=== PATIENT | female | born 1975 | race Hispanic/Latino ===

== ENCOUNTER 2019-08-05 23:05 | Emergency (ER) | payer BC, SELFPAY ==
[2019-08-05] MEDS ORDERED: MORPHINE 4 MG/ML SYR ONE (23:57)
[2019-08-05] MEDS ORDERED: ONDANSETRON 4 MG/2 ML VIAL ONE (23:57)
[2019-08-06 00:01] LABS: Absolute Lymphocytes (CBC) 3.9 K/uL (0.7-4.9); Hematocrit 37.6 % (36.0-45.0); Lymphocytes % 44.7 % (15.3-44.8); MPV 8.3 fL (7.6-11.3); RBC Red Blood Cell Count 4.34 M/uL (3.86-4.86)
[2019-08-06 00:23] LABS: ALT/SGPT 13 U/L (12-78); AST/SGOT 13 U/L (15-37); Albumin 4.2 g/dL (3.4-5.0); Alkaline Phosphatase 57 U/L (45-117); BUN Blood Urea Nitrogen 23 mg/dL (7-18); Bicarbonate 25 mmol/L (21-32); Bilirubin Direct 0.1 mg/dL (0-0.2); Bilirubin Total 0.3 mg/dL (0.2-1.0); Glucose Level 108 mg/dL (74-106); Magnesium 1.7 mg/dL (1.8-2.4); NT PRO-BNP 82 pg/mL (<125); Potassium 3.9 mmol/L (3.5-5.1); Protein, Total 7.3 g/dL (6.4-8.2); Sodium Level 142 mmol/L (136-145); Troponin (Emerg Dept Use Only) < 0.02 ng/mL (0.0-0.045)
[2019-08-06] MEDS ORDERED: MAGNESIUM SULFATE 1 gm IVPB 1 GM/100 ML BAG IV ONE (01:07)
--- NOTE | 2019-08-06 03:21 | ER ---
Nurse's Notes [facility] Name: Savanah Cunha Age: 44 yrs Sex: Female : 1975 Arrival Date: 08/05/2019 Time: 23:06 Bed 30 Private MD: Diagnosis: Radiculopathy, lumbosacral region;Low back pain;Other chest pain Presentation: 08/06 00:05 Presenting complaint: Patient states: patient came in for pain on her right breast, mg2 back and leg. Transition of care: patient was not received from another setting of care. Onset of symptoms was August 05, 2019. Risk Assessment: Do you want to hurt yourself or someone else? Patient reports no desire to harm self or others. Initial Sepsis Screen: Does the patient meet any 2 criteria? No. Patient's initial sepsis screen is negative. Does the patient have a suspected source of infection? No. Patient's initial sepsis screen is negative. 00:05 Method Of Arrival: Wheelchair mg2 00:05 Acuity: EDY 3 mg2 00:05 Care prior to arrival: None. 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 - Social history:: Smoking status: unknown. - Ebola Screening: : No symptoms or risks identified at this time. Screenin:36 Abuse screen: Denies threats or abuse. Denies injuries from another. Nutritional mg2 screening: No deficits noted. Tuberculosis screening: No symptoms or risk factors identified. Fall Risk IV access (20 points). Assessment: 00:34 General: Appears uncomfortable, Behavior is anxious. Pain: Complains of pain in right mg2 breast, leg and back Pain currently is 4 out of 10 on a pain scale. Quality of pain is described as aching, Pain began gradually, Is intermittent. Neuro: Level of Consciousness is awake, alert, obeys commands, Oriented to person, place, time, situation. Cardiovascular: Capillary refill < 3 seconds Patient's skin is warm and dry. Respiratory: Airway is patent Respiratory effort is even, unlabored, Respiratory pattern is regular, symmetrical. GI: No signs and/or symptoms were reported involving the gastrointestinal system. : No signs and/or symptoms were reported regarding the genitourinary system. EENT: No signs and/or symptoms were reported regarding the EENT system. Derm: Skin is intact, is healthy with good turgor, Skin is pink, warm \T\ dry. normal. Musculoskeletal: Circulation, motion, and sensation intact. Capillary refill < 3 seconds, Reports pain in back and leg. 01:30 Reassessment: No changes from previously documented assessment. Patient and/or family fc updated on plan of care and expected duration. Pain level reassessed. Patient is alert, oriented x 3, equal unlabored respirations, skin warm/dry/pink. Pt states that she is starting to feel better. 02:15 Reassessment: Pt gone to Ct Scan. fc 03:01 Reassessment: Pt awake and alert, talking with family at the bedside. States that she fc feels much better. 03:13 Reassessment: Margie ROSA in to talk with pt re: test results and d/c instructions. fc Vital Signs: 08/05 23:28 BP 130 / 103; Pulse 91; Resp 24; Pulse Ox 100% on R/A; Pain 10/10; em1 08/06 00:42 BP 136 / 80; Pulse 72; Resp 18; Pulse Ox 100% on R/A; mg2 01:26 BP 122 / 94; Pulse 77; Resp 18; Pulse Ox 100% on R/A; fc 03:02 BP 109 / 77; Pulse 74; Resp 20; Pulse Ox 100% on R/A; Pain 0/10; fc ED Course: 08/05 23:06 Patient arrived in ED. ds1 23:28 Kamari Hanson PA is PHCP. cp 23:28 Adriano Cabello MD is Attending Physician. cp 08/06 00:32 Triage completed. mg2 00:34 Arm band placed on. mg2 00:36 Patient has correct armband on for positive identification. direct of real estate on. Pulse mg2 ox on. NIBP on. Door closed. Warm blanket given. 00:36 No provider procedures requiring assistance completed. Inserted saline lock: 20 gauge mg2 in right antecubital area, using aseptic technique. Blood collected. 01:02 US Extremity Venous W Compression Blayne In Process Unspecified. EDMS 01:10 XRAY Chest (1 view) In Process Unspecified. EDMS 01:36 Ultrasound completed. Patient tolerated well. Notified ED Physician . sg3 02:32 CT Lumbar Spine Wo Con In Process Unspecified. EDMS 03:33 IV discontinued, intact, bleeding controlled, No redness/swelling at site. Pressure fc dressing applied. Administered Medications: 00:14 Drug: Zofran 4 mg Route: IVP; Site: right antecubital; mg2 01:20 Follow up: Response: No adverse reaction; Nausea is decreased fc 00:15 Drug: morphine 4 mg Route: IVP; Site: right antecubital; mg2 01:20 Follow up: Response: No adverse reaction; Pain is decreased fc 01:10 Drug: Magnesium Sulfate 1 grams Route: IVPB; Infused Over: 1 hrs; Site: right fc antecubital; 02:10 Follow up: Response: No adverse reaction; Marked relief of symptoms; IV Status: fc Completed infusion; IV Intake: 100ml Intake: 02:10 IV: 100ml; Total: 100ml. fc Outcome: 03:21 Discharge ordered by MD. cp 03:33 Discharged to home ambulatory, with family. fc 03:33 Condition: good 03:33 Discharge instructions given to patient, family, Instructed on discharge instructions, follow up and referral plans. no drinking with medication, no driving heavy equipment, medication usage, Demonstrated understanding of instructions, follow-up care, medications, Prescriptions given X 3. 03:36 Patient left the ED. fc Signatures: Dispatcher [employer] EDMS Shaista May RN RN Mare Freedman ds1 Lane Crowe em1 Kamari Hanson PA PA cp Godinez, Sarah 3 Adam Aguilar RN RN mg2 Corrections: (The following items were deleted from the chart) 01:27 00:43 Allergies: simvalta; mg2 fc
--- NOTE | 2019-08-06 03:21 | EDPHYS ---
Physician Documentation [facility] Name: Savanah Cunha Age: 44 yrs Sex: Female : 1975 Arrival Date: 08/05/2019 Time: 23:06 Bed 30 Private MD: ED Physician Adriano Cabello HPI: 08/05 23:45 This 44 yrs old Female presents to ER via Wheelchair with complaints of Leg cp Pain. 23:45 The patient presents with pain, that is acute. The complaints affect the right leg and cp left leg. Onset: The symptoms/episode began/occurred today. Associated signs and symptoms: Pertinent positives: low back pain and right side chest pain, Pertinent negatives fever, weakness, incontinence of bowel or bladder. Treatment prior to arrival includes: no previous treatment. 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 - Social history:: Smoking status: unknown. - Ebola Screening: : No symptoms or risks identified at this time. ROS: 08/05 23:50 Constitutional: Negative for body aches, chills, fever, poor PO intake. cp 23:50 Eyes: Negative for injury, pain, redness, and discharge. cp 23:50 Cardiovascular: Positive for chest pain, Negative for palpitations. cp 23:50 ENT: Negative for drainage from ear(s), ear pain, sore throat, difficulty swallowing, cp difficulty handling secretions. 23:50 Neck: Negative for stiffness. 23:50 Respiratory: Negative for cough, shortness of breath, wheezing. 23:50 Abdomen/GI: Negative for abdominal pain, nausea, vomiting, and diarrhea, black/tarry stool, rectal bleeding, bowel incontinence. 23:50 Back: Positive for pain at rest, pain with movement. 23:50 : Negative for urinary symptoms, bladder incontinence. 23:50 MS/extremity: Positive for pain, of the right leg and left leg, Negative for injury or acute deformity, decreased range of motion. 23:50 Neuro: Negative for altered mental status, headache, numbness, weakness. 23:50 All other systems are negative. Exam: 23:55 Constitutional: The patient appears in no acute distress, alert, awake, non-toxic, well cp developed, well nourished, uncomfortable. 23:55 Head/Face: Normocephalic, atraumatic. cp 23:55 Eyes: Pupils equal round and reactive to light, extra-ocular motions intact. Lids and lashes normal. Conjunctiva and sclera are non-icteric and not injected. Cornea within normal limits. Periorbital areas with no swelling, redness, or edema. ENT: Nares patent. No nasal discharge, no septal abnormalities noted. Tympanic membranes are normal and external auditory canals are clear. Oropharynx with no redness, swelling, or masses, exudates, or evidence of obstruction, uvula midline. Mucous membranes moist. Chest/axilla: Normal chest wall appearance and motion. Nontender with no deformity. No lesions are appreciated. 23:55 Cardiovascular: Rate: normal, Rhythm: regular, Edema: is not appreciated, JVD: is not appreciated. 23:55 Respiratory: the patient does not display signs of respiratory distress, Respirations: normal, no use of accessory muscles, no retractions, no splinting, no tachypnea, labored breathing, is not present, Breath sounds: are clear throughout, no decreased breath sounds, no stridor, no wheezing. 23:55 Abdomen/GI: Inspection: abdomen appears normal, Bowel sounds: active, all quadrants, Palpation: abdomen is soft and non-tender, in all quadrants. 23:55 Back: pain, that is moderate, of the lumbar area, ROM is painful, with all movement. 08/06 00:10 ECG was reviewed by the Attending Physician. cp Vital Signs: 08/05 23:28 BP 130 / 103; Pulse 91; Resp 24; Pulse Ox 100% on R/A; Pain 10/10; em1 08/06 00:42 BP 136 / 80; Pulse 72; Resp 18; Pulse Ox 100% on R/A; mg2 01:26 BP 122 / 94; Pulse 77; Resp 18; Pulse Ox 100% on R/A; fc 03:02 BP 109 / 77; Pulse 74; Resp 20; Pulse Ox 100% on R/A; Pain 0/10; fc MDM: 08/05 23:31 Patient medically screened. cp 08/06 03:20 Data reviewed: vital signs, nurses notes, lab test result(s), radiologic studies, CT cp scan, ultrasound. 03:20 Differential diagnosis: DVT, sciatica, cauda equina, spinal stenosis. Counseling: I had cp a detailed discussion with the patient and/or guardian regarding: the historical points, exam findings, and any diagnostic results supporting the discharge/admit diagnosis, lab results, radiology results, the need for outpatient follow up, a family practitioner, to return to the emergency department if symptoms worsen or persist or if there are any questions or concerns that arise at home. Response to treatment: the patient's symptoms have markedly improved after treatment, VSS. Pain improved, and as a result, I will discharge patient. 08/05 23:42 Order name: Basic Metabolic Panel; Complete Time: 00:56 cp 08/06 02:57 Interpretation: Normal except: CL 109; GLUC 108; BUN 23; GFR 78. 08/05 23:42 Order name: CBC with Diff; Complete Time: 00:08 cp 08/06 00:08 Interpretation: Reviewed. 08/05 23:42 Order name: LFT's; Complete Time: 00:56 cp 08/06 02:57 Interpretation: Reviewed. 08/05 23:42 Order name: Magnesium; Complete Time: 00:56 cp 08/06 02:57 Interpretation: Abnormal: MG 1.7. cp 08/05 23:42 Order name: NT PRO-BNP; Complete Time: 00:56 cp 08/05 23:42 Order name: PT-INR; Complete Time: 00:56 cp 08/05 23:42 Order name: US Extremity Venous W Compression Blayne cp 08/05 23:42 Order name: Troponin (emerg Dept Use Only); Complete Time: 00:56 cp 08/05 23:42 Order name: XRAY Chest (1 view) 08/05 23:42 Order name: EKG; Complete Time: 23:43 cp 08/06 00:17 Order name: CT Lumbar Spine Wo Con cp 08/05 23:42 Order name: Cardiac monitoring; Complete Time: 00:15 cp 08/05 23:42 Order name: EKG - Nurse/Tech; Complete Time: 00:15 cp 08/05 23:42 Order name: IV Saline Lock; Complete Time: 00:15 cp 08/05 23:42 Order name: Labs collected and sent; Complete Time: 00:15 cp 08/05 23:42 Order name: O2 Per Protocol; Complete Time: 00:15 cp 08/05 23:42 Order name: O2 Sat Monitoring; Complete Time: 00:15 cp EC:10 Rate is 76 beats/min. Rhythm is regular. RI interval is normal. QRS interval is normal. cp QT interval is normal. T waves are Inverted in lead III. Interpreted by me. Reviewed by me. Administered Medications: 00:14 Drug: Zofran 4 mg Route: IVP; Site: right antecubital; mg2 01:20 Follow up: Response: No adverse reaction; Nausea is decreased fc 00:15 Drug: morphine 4 mg Route: IVP; Site: right antecubital; mg2 01:20 Follow up: Response: No adverse reaction; Pain is decreased fc 01:10 Drug: Magnesium Sulfate 1 grams Route: IVPB; Infused Over: 1 hrs; Site: right fc antecubital; 02:10 Follow up: Response: No adverse reaction; Marked relief of symptoms; IV Status: fc Completed infusion; IV Intake: 100ml Disposition: 06:55 Co-signature as Attending Physician, Adriano Cabello MD I agree with the assessment and tw4 plan of care. Disposition: 08/06/19 03:21 Discharged to Home. Impression: Radiculopathy, lumbosacral region, Low back pain, Other chest pain. - Condition is Stable. - Discharge Instructions: Back Pain, Adult, Nonspecific Chest Pain, Lumbosacral Radiculopathy, Aspirin and Your Heart. - Prescriptions for Cyclobenzaprine 10 mg Oral Tablet - take 1 tablet by ORAL route every 8 hours As needed; 20 tablet. Medrol (Андрей) 4 mg Oral Tablets, Dose Pack - take 1 tablet by ORAL route as directed - follow package instructions; 1 packet. Tramadol 50 mg Oral Tablet - take 1 tablet by ORAL route every 8 hours as needed; 20 tablet. - Medication Reconciliation Form, Thank You Letter, Antibiotic Education, Prescription Opioid Use form. - Follow up: Private Physician; When: 2 - 3 days; Reason: Recheck today's complaints. - Problem is new. - Symptoms have improved. Signatures: Dispatcher [employer] EDShaista Chambers RN RN Kamari Webster PA PA cp Wadley, Terrence, MD MD tw4 Adam Aguilar, RN RN mg2 Corrections: (The following items were deleted from the chart) 01:27 00:43 Allergies: simvalta; mg2 fc 03:36 03:21 08/06/2019 03:21 Discharged to Home. Impression: Radiculopathy, lumbosacral fc region; Low back pain; Other chest pain. Condition is Stable. Forms are Medication Reconciliation Form, Thank You Letter, Antibiotic Education, Prescription Opioid Use. Follow up: Private Physician; When: 2 - 3 days; Reason: Recheck today's complaints. Problem is new. Symptoms have improved. cp
--- NOTE | 2019-08-06 06:13 | EKG ---
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
[2019-08-06 06:30] VITALS: O2SAT 100
[2019-08-06 06:33] VITALS: BP 109/77
[2019-08-06 07:16] VITALS: TEMP 98.2
--- NOTE | 2019-08-06 09:55 | RAD REPORT ---
EXAM DESCRIPTION: RAD - Chest Single View - 08/06/2019 1:09 am CLINICAL HISTORY: Right-sided breast and chest pain COMPARISON: December 2009 TECHNIQUE: AP portable chest image was obtained 2358 hours . FINDINGS: Lungs are clear. Heart and vasculature are normal. No measurable pleural effusion and no p neumothorax. No acute bony abnormality seen. No acute aortic findings suspected. IMPRESSION: No acute cardiopulmonary process.
--- NOTE | 2019-08-06 10:47 | RAD REPORT ---
EXAM DESCRIPTION: US - Extrem Venous W Compress Blayne - 08/06/2019 1:02 am CLINICAL HISTORY: Leg pain and swelling COMPARISON: None. TECHNIQUE: Real-time sonographic evaluation of the bilateral lower extremity common femoral, superfi cial femoral, popliteal and posterior tibial veins was performed. FINDINGS: Normal compressibility, flow augmentation, phasic flow and spontaneous flow are identified in the left and right lower extremity common femoral, superficial femoral, popliteal and posterior t ibial veins. No intraluminal filling defects seen. IMPRESSION: No DVT in either lower extremity.
--- NOTE | 2019-08-08 15:32 | RAD REPORT ---
EXAM DESCRIPTION: CT - Spine Lumbar Wo Con - 08/06/2019 3:53 am CLINICAL HISTORY: 44 years Female leg pain; Lower back pain COMPARISON: None TECHNIQUE Multiplanar imaging through the lumbar spine without contrast. This exam was performed a ccording to our departmental dose-optimization program, which includes automated exposure control, ad justment of the mA and/or kV according to patient size and/or use of iterative reconstruction techniq ue. FINDINGS: No fracture. Trace retrolisthesis of L4 on L5. Mild facet arthropathy, right greater than left Disc spaces are preserved. Paraspinal soft tissues are unremarkable. Visualized abdomen demonstrates no acute abnormality. IMPRESSION: No acute lumbar spine fracture. Mild lower lumbar changes. Electronically signed by: Partha Michael DO 08/06/2019 3:05 AM CDT Due to temporary technical issues with the PACS/Fluency reporting system, reports are being signed by the in house radiologist as a courtesy to ensure prompt reporting. The interpreting radiologist is f ully responsible for the content of the report.
== END 2019-08-06 03:36 | disposition home or self-care (01) ==
LOC: ER 23:05
DX: M54.17 Radiculopathy, lumbosacral region (principal); R07.89 Other chest pain; F41.9 Anxiety disorder, unspecified; Z88.8 Allergy status to other drugs, medicaments and biological substances; Z98.82 Breast implant status
CPT/HCPCS: 36415; 71045; 72131; 80048; 80076; 83735; 83880; 84484; 85025; 85610; 93005; 93970; 96365; 96375; 99284; J2405; J3475

== ENCOUNTER 2021-03-16 12:49 | Emergency (ER) | payer SELFPAY ==
--- OUTSIDE RECORDS SUMMARY | 2021-03-16 12:53 | XMS REPORT | Continuity of Care Document ---
:1975 Author Organization [facility] t Address [address] [place] [address] Care Team Providers Name Role Phone Oswaldo Cha MD Primary Care Physician Sherice Copeland MD Attending Clinician Problems This patient has no known problems. Allergies, Adverse Reactions, Alerts This patient has no known allergies or adverse reactions. Social History Social Habit Start Date Stop Date Quantity Comments Source Sex Assigned At [birth year] [facility] 00:00:00 00:00:00 Medications This patient has no known medications. Procedures This patient has no known procedures. Plan of Care Planned Activity Planned Date Details Comments Source Future Scheduled 2021-06-01 INFLUENZA VACCINE [place] 00:00:00 [code = INFLUENZA VACCINE] Future Scheduled 1998 Screening for [facility] Test 00:00:00 malignant neoplasm of cervix (procedure) [code = 880533943] Future Scheduled 1995 Hepatitis C [facility] 00:00:00 screening (procedure) [code = 952636753] Future Scheduled 1993 COVID-19 VACCINE (1) [facility] 00:00:00 [code = COVID-19 VACCINE (1)] Encounters Start End Encounter Admission Attending Care Care Encounter Source Date/Time Date/Time Type Type Clinicians Facility Department ID 2019-06-05 2019-06-05 Telephone Berry Copeland [id number] 00:00:00 00:00:00 C Kali [id number] Francis [id number] Results This patient has no known results.
--- NOTE | 2021-03-16 14:33 | RAD REPORT ---
EXAM DESCRIPTION: RAD - Forearm Right - 03/16/2021 2:25 pm CLINICAL HISTORY: PAIN COMPARISON: Wrist Right 3 View dated 03/16/2021, no remote imaging FINDINGS: Distal radius and ulna are detailed in the separately reported right wrist examination. At the elbow joint no fracture or acute finding seen. To the distal shaft level of the radius and ulna no acute findings are identifiable. No foreign body or other soft tissue abnormality. IMPRESSION: Distal radius and ulna are detailed in the right wrist report. Remainder of the forearm is unremarkable.
--- NOTE | 2021-03-16 14:35 | RAD REPORT ---
EXAM DESCRIPTION: RAD - Wrist Right 3 View - 03/16/2021 2:25 pm CLINICAL HISTORY: PAIN COMPARISON: No comparisons FINDINGS: Fracture involves the distal right radius including the articular surface. There is no dis traction or angulation component seen. Configuration of the ulna styloid is believed to be chronic in jury or normal variant rather than an acute ulna styloid fracture. No dislocation periosteal changes. Carpal bones are intact. No foreign body or other soft tissue abnormality. IMPRESSION: Distal right radius fracture without distraction or angulation component. Configuration of the ulna styloid tip could be normal variant or small fracture. The presence of a fr acture would not alter medical management.
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
[2021-03-16] MEDS ORDERED: HYDROCODONE/APAP 10/325 TAB ONE (16:18)
[2021-03-16 16:43] VITALS: BP 103/52; TEMP 97.1; O2SAT 100
[2021-03-16] MEDS ORDERED: TETANUS & DIPHTHERIA TOX,ADULT 0.5 ML VIAL ONE (16:50)
== END 2021-03-16 16:37 | disposition home or self-care (01) ==
LOC: ER 12:49
PROC: 2W3CX1Z Immobilization of Right Lower Arm using Splint (ICD-10-PCS; principal; 2021-03-16)
DX: S52.501A Unspecified fracture of the lower end of right radius, initial encounter for closed fracture (principal); V28.9XXA Unspecified motorcycle rider injured in noncollision transport accident in traffic accident, initial encounter; F41.9 Anxiety disorder, unspecified; Z98.82 Breast implant status; Z88.8 Allergy status to other drugs, medicaments and biological substances; Z23 Encounter for immunization
CPT/HCPCS: 90471; 90714; 99284

== ENCOUNTER 2022-08-23 03:53 | Emergency (ER) | payer SELFPAY ==
--- OUTSIDE RECORDS SUMMARY | 2022-08-23 03:57 | XMS REPORT | Continuity of Care Document ---
:1975 Author Organization [facility] t Address [address] [place] [address] Care Team Providers Name Role Phone TATIANA COPELAND III Primary Care Physician Unavailable GC_NAVEED_Zackary_J Attending Clinician Unavailable Andreina Marks Attending Clinician Cesar Kay MD Attending Clinician CESAR KAY Attending Clinician Unavailable Doctor Unassigned, [place] Attending Clinician Unavailable JANIE BUTT Attending Clinician Unavailable George Attending Clinician Unavailable Tatiana Copeland MD Attending Clinician GC_NAVEED_Zackary_Bam Admitting Clinician Unavailable George Admitting Clinician Unavailable Payers Payer Name Policy Type Policy Number Effective Date Expiration Date S ource [employer] [id number] - [place] [id number] 2014 (PPO) 00:00:00 Problems Condition Condition Condition Status Onset Resolution Last Treating Co mments Source Name Details Category Date Date Treatment Clinician Date Reactive Reactive Disease Active Unive rs depression depression 8- it y of 00:00: [place] 00 Medical Branch Allergies, Adverse Reactions, Alerts Allergy Allergy Status Severity Reaction(s) Onset Inactive Treating Comm ents Source Name Type Date Date Clinician Duloxeti Drug Active Other - See Uni vers ne Allergy comments 05-21 ity of 00:00: [place] 00 Medical Branch DULOXETI DRUG Active High Other-Cmnt Univ ers NE INGREDI 05-21 ity of 00:00: [place] 00 Medical Branch Hydrocod Propensi Active Itching 2009-11 Unive rs one ty to 0-05 ity of adverse 00:00: [place] reaction 00 Medical s Branch HYDROCOD DRUG Active ITCHING 2009-11 Univers ONE INGREDI 0-05 ity of 00:00: [place] 00 Medical Branch NO KNOWN Drug Active Univers ALLERGIE Class ity of S [facility] Social History Social Habit Start Date Stop Date Quantity Comments Source Exposure to Not sure [facility] SARS-CoV-2 (event) Medica l Branch Tobacco use and 2021-05-21 2021-05-21 Never used [facility] of [place] exposure 00:00:00 00:00:00 [facility] Sex Assigned At [birth year] [facility] 00:00:00 00:00:00 Smoking Status Start Date Stop Date Source Tobacco smoking consumption [facility] unknown Never smoker [facility] Medications Ordered Filled Start Stop Current Ordering Indication Dosage Frequency Signature Comments Components Source Medication Medication Date Date Medication? Clinician (SIG) Name Name triamcinolo 2020- No [id number] 40mg U nivers ne 05-21 ity of acetonide 23:30: 22:24 [place] (KENALOG) 00 :00 Medical injection Branch 40 mg triamcinolo 2020- No [id number] 40mg 40 mg, [facility] ne 05-21 Intramuscu ity of acetonide 23:30: 22:24 [place]CE, [place] (KE[place]LOG[place] 00 :00 1 dose, Medical injection Wed Branch 40 mg 05/21/21 at 1830, Routine methylPREDN Yes [id number] Take by [facility] ISolone 05-21 mouth ity of (MEDROL, 00:00: SEE-INSTRU [place] as DAYDAY,) 4 mg 00 CTIONS. Medica l tablets follow Branch package directions fluticasone Yes [id number] 2{spray Use 2 Univers propionate 05-21 } Sprays in ity of (FLONASE 00:00: each [place] ALLERGY 00 nostril Medical RELIEF) 50 daily. Branch mcg/actuati on nasal spray methylPREDN Yes [id number] Take by Univers ISolone 7-21 mouth ity of (MEDROL, 00:00: SEE-INSTRU [place] DAYDAY,) 4 mg 00 CTIONS. Medica l tablets follow Branch package directions fluticasone Yes [id number] 2{spray Use 2 Univers propionate 7- } Sprays in ity of (FLONASE 00:00: each [place] ALLERGY nostril Medical RELIEF) 50 daily. Branch mcg/actuati on nasal spray amoxicillin 2020- No [id number] 1{tbl} Take 1 Univers -clavulanat 7- 07-29 tablet by it y of e 875-125 00:00: 04:59 [place] 2 [place] mg per 00 :00 (two) Medical tablet times Branch daily for 7 days. methylpheni Yes 1{tbl} Take 1 Un jak date HCl 36 8-19 tablet by ity of mg 24 hr 21:59: mouth [place] tablet 58 daily. Medical Branch methylpheni Yes 1{tbl} Take 1 Un jak date HCl 36 8-19 tablet by ity of mg 24 hr 21:59: mouth [place] tablet 58 daily. Medical Branch HYDROcodone Yes 1{tbl} Take 1 Un jak -acetaminop 8-19 tablet by ity of hen 10-325 17:48: mouth [place] mg tablet 40 every 8 Medical (eight) Branch hours. HYDROcodone Yes 1{tbl} Take 1 Un jak -acetaminop 8-19 tablet by ity of hen 10-325 17:48: mouth [place] mg tablet 40 every 8 Medical (eight) Branch hours. methylpheni Yes 1{tbl} Take 1 Un jak date HCl 36 8-19 tablet by ity of mg 24 hr 16:59: mouth [place] tablet 58 daily. Medical Branch HYDROcodone Yes 1{tbl} Take 1 Un jak -acetaminop 8-19 tablet by ity of hen 10-325 12:48: mouth [place] mg tablet 40 every 8 Medical (eight) Branch hours. albuterol Yes ProAir HFA Un jak (PROAIR 6-28 90 ity of HFA) 90 21:09: mcg/actuat [place] mcg/actuati 10 ion Medical on inhaler aerosol Branch inhaler Inhale 2 puffs every 4 hours by inhalation route as needed for 30 days. albuterol 2018-0 Yes ProAir HFA Un jak (PROAIR 6-28 90 ity of HFA) 90 21:09: mcg/actuat [place] mcg/actuati 10 ion Medical on inhaler aerosol Branch inhaler Inhale 2 puffs every 4 hours by inhalation route as needed for 30 days. albuterol 2018-0 Yes ProAir HFA Un jak (PROAIR 6-28 90 ity of HFA) 90 21:09: mcg/actuat [place] mcg/actuati 10 ion Medical on inhaler aerosol Branch inhaler Inhale 2 puffs every 4 hours by inhalation route as needed for 30 days. ALPRAZolam Yes alprazolam U nivers 2 mg tablet 6-28 2 mg ity of 21:08: tablet [place] [address] Medical Branch acetaminoph 0 Yes Take by Un jak en-codeine 6-28 mouth. ity of 300-60 mg 21:08: [place] tablet 30 Medical Branch ALPRAZolam Yes alprazolam U nivers 2 mg tablet 6-28 2 mg ity of 21:08: tablet [place] [address] Medical Branch acetaminoph 0 Yes Take by Uni vers en-codeine 6-28 mouth. ity of 300-60 mg 21:08: [place] tablet 30 [facility] Branch ALPRAZolam Yes alprazolam U nivers 2 mg tablet 6-28 2 mg ity of 21:08: tablet [place] 30 Medical Branch acetaminoph [id number] Yes Take by Uni vers en-codeine 6-28 mouth. ity of 300-60 mg 21:08: [facility] 30 Medical Branch albuterol 2019-0 Yes ProAir HFA Un jak (PROAIR 6-28 90 ity of HFA) 90 16:09: mcg/actuat [place] mcg/actuati 10 ion Medical on inhaler aerosol Branch inhaler Inhale 2 puffs every 4 hours by inhalation route as needed for 30 days. ALPRAZolam Yes alprazolam U nivers 2 mg tablet 6-28 2 mg ity of 16:08: tablet [place] 30 Medical Branch acetaminoph 2019-0 Yes Take by Uni vers en-codeine 6-28 mouth. ity of 300-60 mg 16:08: [place] [facility] 30 Medical Branch naproxen 2019-0 Yes [id number] 500mg Take 1 Uni vers 500 mg 6-28 tablet by ity of tablet 00:00: mouth 2 [place] (two) Medical times Branch daily with meals. naproxen 2018- Yes [id number] 500mg Take 1 Uni vers 500 mg 6-28 tablet by ity of tablet 00:00: mouth 2 [place] (two) Medical times Branch daily with meals. naproxen 2018- Yes [id number] 500mg Take 1 Uni vers 500 mg 6-28 tablet by ity of tablet 00:00: mouth 2 [place] (two) Medical times Branch daily with meals. naproxen Yes [id number] 500mg Take 1 Uni vers 500 mg 6-28 tablet by ity of tablet 00:00: mouth 2 [place] (two) Medical times Branch daily with meals. FLUTICASONE 2017-11 Yes [id number] 1{spray USE 1 Univers 50 1-15 } SPRAY IN ity of mcg/actuati 00:00: EACH [place] on nasal 00 NOSTRIL 2 Medica l spray (TWO) Branch TIMES DAILY. FLUTICASONE 2017- Yes [id number] 1{spray USE 1 Univers 50 1-15 } SPRAY IN ity of mcg/actuati 00:00: EACH [place] on nasal 00 NOSTRIL 2 Medica l spray (TWO) Branch TIMES DAILY. FLUTICASONE 2017- Yes [id number] 1{spray USE 1 Univers 50 1-15 } SPRAY IN ity of mcg/actuati 00:00: EACH [place] on nasal 00 NOSTRIL 2 Medica l spray (TWO) Branch TIMES DAILY. FLUTICASONE 2017- Yes [id number] 1{spray USE 1 Univers 50 1-15 } SPRAY IN ity of mcg/actuati 00:00: EACH [place] on nasal 00 NOSTRIL 2 Medica l spray (TWO) Branch TIMES DAILY. benzonatate Yes [id number] 100mg Take 1 Univers (TESSALON 8-01 capsule by ity of KIMBER) 100 00:00: mouth 3 [place] mg capsule 00 (three) Medica l times Branch daily. benzonatate Yes [id number] 100mg Take 1 Univers (TESSALON 8-01 capsule by ity of PERLCotopaxi) 100 00:00: mouth 3 [place] mg capsule 00 (three) Medica l times Branch daily. benzonatate Yes [id number] 100mg Take 1 Univers (TESSALON 8-01 capsule by ity of PERLCotopaxi) 100 00:00: mouth 3 [place] as mg capsule 00 (three) Medica l times Branch daily. benzonatate Yes [id number] 100mg Take 1 Univers (TESSALON 8-01 capsule by ity PERLCotopaxi) 100 00:00: mouth 3 [place] as mg capsule 00 (three) Medica l times Branch daily. zolpidem 10 2014-11 Yes 1{tbl} Take 1 Un jak mg tablet 1-20 tablet by ity o f 00:00: mouth [place] 00 daily. Medical Branch zolpidem 10 2014-11 Yes 1{tbl} Take 1 Un jak mg tablet 1-20 tablet by ity o f 00:00: mouth [place] 00 daily. Medical Branch zolpidem 10 2014-11 Yes 1{tbl} Take 1 Un jak mg tablet 1-20 tablet by ity o f 00:00: mouth [place] 00 daily. Medical Branch propranolol 2014-11 Yes 1{tbl} Take 1 Un jak 40 mg 0-27 tablet by ity of tablet 00:00: mouth 2 [place] 00 (two) Medical times Branch daily. propranolol 2014-11 Yes 1{tbl} Take 1 Un jak 40 mg 0-27 tablet by ity of tablet 00:00: mouth 2 [place] 00 (two) Medical times Branch daily. propranolol 2014-11 Yes 1{tbl} Take 1 Un jak 40 mg 0-27 tablet by ity of tablet 00:00: mouth 2 [place] 00 (two) Medical times Branch daily. propranolol 2014-11 Yes 1{tbl} Take 1 Un jak 40 mg 0-27 tablet by ity of tablet 00:00: mouth 2 [place] 00 (two) Medical times Branch daily. Immunizations Ordered Filled Immunization Date Status Comments [facility] e Immunization Name Name SARS-COV-2 COVID-19 2021-02-08 Completed [facility] [place] [facility] of PFIZER VACCINE 00:00:00 [facility] SARS-COV-2 COVID-19 2021-02-08 Completed Unive rsity of PFIZER VACCINE 00:00:00 [facility] SARS-COV-2 COVID-19 2021-02-08 Completed Unive rsity of PFIZER VACCINE 00:00:00 [facility] SARS-COV-2 COVID-19 2021-01-18 Completed Unive rsity of PFIZER VACCINE 00:00:00 [facility] SARS-COV-2 COVID-19 2021-01-18 Completed Unive rsity of PFIZER VACCINE 00:00:00 [facility] SARS-COV-2 COVID-19 2021-01-18 Completed Unive rsity of PFIZER VACCINE 00:00:00 [facility] Influenza Virus 2010-08-05 Completed Universit y of Vaccine Quad IM 00:00:00 [place] Med ical Multi-dose 6+ MO Branch Influenza Virus 2010-08-05 Completed Universit y of Vaccine Quad IM 00:00:00 [place] Med ical Multi-dose 6+ MO Branch Influenza Virus 2010-08-05 Completed Universit y of Vaccine [facility] IM 00:00:00 [place] Med ical Multi-dose 6+ MO Branch Influenza Virus 2010-08-05 Completed Universit y of Vaccine [facility] IM 00:00:00 [place] Med ical Multi-dose 6+ MO Branch Td 2005-08-01 Completed University of 00:00:00 [facility] Td 2005-08-01 Completed University of 00:00:00 [facility] Td 2005-08-01 Completed University of 00:00:00 [facility] Vital Signs Vital Name Observation Time Observation Value Comments Source Systolic blood 2021-05-21 21:55:00 146 mm[Hg] Univer sity of pressure [facility] Diastolic blood 2021-05-21 21:55:00 103 mm[Hg] Unive rsity of pressure [facility] Heart rate 2021-05-21 21:52:00 71 /min [facility] Body temperature 2021-05-21 21:52:00 37 Deana [facility] [place] [facility] Respiratory rate 2021-05-21 21:52:00 18 /min [facility] Body height 2021-05-21 21:52:00 160 cm [facility] Body weight 2021-05-21 21:52:00 [facility] 2021-05-21 21:52:00 34.54 kg/m2 [facility] Oxygen saturation in 2021-05-21 21:52:00 96 /min [facility] Arterial blood by [facility] Pulse oximetry Branch Procedures Procedure Date / Time Performed Performing Clinician Jannette e CONSENT/REFUSAL FOR 2021-05-21 21:45:39 [facility] [place] T[facility] Plan of Care Planned Activity Planned Date Details Comments Source Future Scheduled 2022-07-03 HEPATITIS B VACCINES [facility] Test 02:35:11 (1 of 3 - 3-dose series) [code = HEPATITIS B VACCINES (1 of 3 - 3-dose series)] Future Scheduled 2022-07-03 COVID-19 VACCINE (#1) [facility] Test 02:35:11 [code = COVID-19 VACCINE (#1)] Future Scheduled 2022-07-03 Screening for [facility] Test 02:35:11 malignant neoplasm of cervix (procedure) [code = 047282399] Future Scheduled 2022-07-03 BREAST CANCER [facility] Test 02:35:11 SCREENING [code = BREAST CANCER SCREENING] Future Scheduled 2022-07-[address] [facility] Test 02:35:11 [code = COLONOSCOPY SCREENING] Future Scheduled 2022-07-03 INFLUENZA VACCINE Method [facility] Test 02:35:11 [code = INFLUENZA VACCINE] Encounters Start End Encounter Admission Attending Care Care Encounter Source Date/Time Date/Time Type Type Clinicians Facility Department ID 2022-03-09 2022-03-09 Outpatient GC_HGMDA_Go PRIV PRIV [id number] [facility] 03:24:00 03:24:00 nzalez_J [id number] Medic al 2022-03-07 2022-03-07 Outpatient GC_HGMDA_Go PRIV PRIV [id number] [facility] 02:08:00 02:08:00 nzalez_J [id number] Medic al 2022-02-08 2022-02-08 Outpatient GC_HGMDA_Go PRIV PRIV [id number] [facility] 01:16:00 01:16:00 nzalez_J [id number] Medic al 2022-01-10 2022-01-10 Outpatient GC_HGMDA_Go PRIV PRIV [id number] [facility] 01:34:00 01:34:00 nzalez_J [id number] Medic al 2022-01-07 2022-01-07 Outpatient GC_HGMDA_Go PRIV PRIV [id number] [facility] 02:24:00 02:24:00 nzalez_J [id number] Medic al 2022-01-06 2022-01-06 Outpatient GC_HGMDA_Go PRIV PRIV [id number] [facility] 07:53:00 07:53:00 nzalez_J [id number] Medic al 2021-12-30 2021-12-30 Outpatient GC_HGMDA_Go PRIV PRIV [id number] [facility] 08:06:00 08:06:00 nzalez_J [id number] Medic al 2021-12-04 2021-12-04 Refyolanda Reeves [facility] [id number] Univers 00:00:00 00:00:00 [facility] [id number] it y of [place] [id number] [place] as PROFESSIO [phone] [address] OFFICE [facility] 2021-05-21 2021-05-21 Urgent Andreina Reeves [facility] [id number] Univers 16:45:48 17:05:48 Care Cesar Kay [facility] [id number] ity of [place] [id number] [place] as Professio [phone] [address] Office [facility] One 2021-05-21 2021-05-21 Outpatient R RAHUL [facility] [id number] Univers 17:00:00 17:00:00 [facility] 2021-05-21 2021-05-21 Orders Doctor MATHEW [id number] Univers 00:00:00 00:00:00 Only Unassigned, [place] [id number] ity of [place] [facility] [id number] Paul as [phone] [address] 2021-02-08 2021-02-08 Outpatient Misael BUTT [facility] [id number] Univers 11:50:00 12:45:25 [facility] 2021-01-18 2021-01-18 Outpatient R FILOMENA [facility] [id number] Univers 11:25:00 11:25:00 [facility] 2020-09-18 2020-09-18 Outpatient Brown_R MMG G [id number] [place] 02:39:00 02:39:00 [id number] 2019-06-05 2019-06-05 Telephone Tatiana Copeland [id number] 00:00:00 00:00:00 C Bass [id number] [place] [id number] [facility] 2019-06-05 2019-06-05 Telephone Tatiana Copeland [id number] [facility] 00:00:00 00:00:00 C Bass [id number] it y of [place] [id number] [facility] [phone] [place] [address] Branch Results This patient has no known results.
[2022-08-23] MEDS ORDERED: NA CHLORIDE 0.9% 1,000 ML ONE (04:25)
[2022-08-23 04:38] LABS: Absolute Lymphocytes (CBC) 1.9 K/uL (0.7-4.9); Hematocrit 28.5 % (36.0-45.0); Lymphocytes % 40.9 % (15.3-44.8); MCV 70.1 fL (80-100); MPV 7.7 fL (7.6-11.3); RBC Red Blood Cell Count 4.06 M/uL (3.86-4.86)
[2022-08-23 04:44] LABS: Protime INR 0.98
[2022-08-23 04:48] LABS: SARS-CoV-2 Antigen Rapid Res Negative (Negative)
[2022-08-23 04:56] LABS: ALT/SGPT 14 U/L (12-78); AST/SGOT 12 U/L (15-37); Albumin 3.3 g/dL (3.4-5.0); Alkaline Phosphatase 54 U/L (45-117); BUN Blood Urea Nitrogen 9 mg/dL (7-18); Bicarbonate 27 mmol/L (21-32); Glomerular Filtration Rate 75 ml/min (=/>90); Glucose Level 105 mg/dL (74-106); Magnesium 1.8 mg/dL (1.8-2.4); NT PRO-BNP 169 pg/mL (<125); Potassium 3.8 mmol/L (3.5-5.1); Protein, Total 6.9 g/dL (6.4-8.2); Sodium Level 137 mmol/L (136-145); Troponin High Sensitivity 4.5 pg/mL (<58.9)
[2022-08-23 04:57] LABS: Bilirubin Direct < 0.1 mg/dL (0-0.2); Bilirubin Total < 0.1 mg/dL (0.2-1.0)
[2022-08-23] MEDS ORDERED: FOLIC ACID 1 MG TABLET ONE (05:09)
[2022-08-23 05:25] LABS: Anisocytosis 2+; Blood Morphology Comment NOTED (NOT SEEN); Hypochromasia 1+; Ovalocytes 2+; Platelet Estimate ADEQ; Target Cells 1+; Teardrop Cell 1+; White Blood Cell Scan OK (OK)
[2022-08-23 05:32] LABS: Urine Blood 1+ (Negative); Urine Glucose Negative (Negative); Urine Protein Trace (Negative); Urine Specific Gravity >=1.030 (1.005-1.030); Urine pH 5.5 (5.0-7.0)
[2022-08-23 05:56] LABS: Barbiturates NEGATIVE (NEGATIVE); Benzodiazepines POSITIVE (NEGATIVE); Cocaine NEGATIVE (NEGATIVE); METHAMPHETAM POSITIVE (NEGATIVE); Methadone NEGATIVE (NEGATIVE); Opiates NEGATIVE (NEGATIVE); Phencyclidine POSITIVE (NEGATIVE); THC Cannibis POSITIVE (NEGATIVE)
--- NOTE | 2022-08-23 06:15 | EDPHYS ---
Physician Documentation [facility] Name: Savanah Cunha Age: 47 yrs Sex: Female : 1975 Arrival Date: 08/23/2022 Time: 04:02 Bed 4 Private MD: ED Physician Kamari Mccloud HPI: 08/23 04:50 This 47 yrs old Female presents to ER via EMS with complaints of Altered nicky Mental Status. 04:50 The patient presents with confusion, trouble concentrating. Onset: The symptoms/episode nicky began/occurred last night. Possible causes: CVA or TIA, drug use, head injury, low blood sugar, seizure, unknown. Associated signs and symptoms: The patient has no apparent associated signs or symptoms. Current symptoms: In the emergency department the patient's symptoms have improved, moderately. Patient's baseline: Neuro: alert and fully oriented. The patient has not experienced similar symptoms in the past. 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 - Social history:: Smoking status: Reported history of juuling and/or vaping. Patient uses alcohol, occasionally. Patient/guardian denies using street drugs. ROS: 04:51 Constitutional: Negative for fever, chills, and weight loss, Eyes: Negative for injury, nicky pain, redness, and discharge, ENT: Negative for injury, pain, and discharge, Neck: Negative for injury, pain, and swelling, Cardiovascular: Negative for chest pain, palpitations, and edema, Respiratory: Negative for shortness of breath, cough, wheezing, and pleuritic chest pain, Abdomen/GI: Negative for abdominal pain, nausea, vomiting, diarrhea, and constipation, Back: Negative for injury and pain, : Negative for injury, bleeding, discharge, and swelling, MS/Extremity: Negative for injury and deformity, Skin: Negative for injury, rash, and discoloration, Psych: Negative for depression, anxiety, suicide ideation, homicidal ideation, and hallucinations, Allergy/Immunology: Negative for hives, rash, and allergies, Endocrine: Negative for neck swelling, polydipsia, polyuria, polyphagia, and marked weight changes, Hematologic/Lymphatic: Negative for swollen nodes, abnormal bleeding, and unusual bruising. 04:51 Neuro: Positive for altered mental status, seizure activity, weakness. Exam: 04:51 Constitutional: This is a well developed, well nourished patient who is awake, alert, nicky and in no acute distress. Head/Face: Normocephalic, atraumatic. Eyes: Pupils equal round and reactive to light, extra-ocular motions intact. Lids and lashes normal. Conjunctiva and sclera are non-icteric and not injected. Cornea within normal limits. Periorbital areas with no swelling, redness, or edema. ENT: Nares patent. No nasal discharge, no septal abnormalities noted. Tympanic membranes are normal and external auditory canals are clear. Oropharynx with no redness, swelling, or masses, exudates, or evidence of obstruction, uvula midline. Mucous membranes moist. Neck: Trachea midline, no thyromegaly or masses palpated, and no cervical lymphadenopathy. Supple, full range of motion without nuchal rigidity, or vertebral point tenderness. No Meningismus. Chest/axilla: Normal chest wall appearance and motion. Nontender with no deformity. No lesions are appreciated. Cardiovascular: Regular rate and rhythm with a normal S1 and S2. No gallops, murmurs, or rubs. Normal PMI, no JVD. No pulse deficits. Respiratory: Lungs have equal breath sounds bilaterally, clear to auscultation and percussion. No rales, rhonchi or wheezes noted. No increased work of breathing, no retractions or nasal flaring. Abdomen/GI: Soft, non-tender, with normal bowel sounds. No distension or tympany. No guarding or rebound. No evidence of tenderness throughout. Back: No spinal tenderness. No costovertebral tenderness. Full range of motion. Skin: Warm, dry with normal turgor. Normal color with no rashes, no lesions, and no evidence of cellulitis. MS/ Extremity: Pulses equal, no cyanosis. Neurovascular intact. Full, normal range of motion. Neuro: Awake and alert, GCS 15, oriented to person, place, time, and situation. Cranial nerves II-XII grossly intact. Motor strength 5/5 in all extremities. Sensory grossly intact. Cerebellar exam normal. Normal gait. Psych: Awake, alert, with orientation to person, place and time. Behavior, mood, and affect are within normal limits. 04:51 ECG was reviewed by the Attending Physician. Vital Signs: 04:03 BP 128 / 84; Pulse 84; Resp 16 S; Temp 98.5(O); Pulse Ox 99% ; Weight 81.65 kg (R); bb Height 5 ft. 3 in. (160.02 cm) (R); Pain 0/10; 05:09 BP 112 / 71; Pulse 76; Resp 17 S; Pulse Ox 96% on R/A; aa9 04:03 Body Mass Index 31.89 (81.65 kg, 160.02 cm) bb MDM: 04:05 Patient medically screened. nicky 04:53 Differential Diagnosis altered mental status. Differential Diagnosis: CVA, electrolyte nicky abnormality, alcohol intoxication, hypoglycemia, intracranial bleed, overdose, pneumonia, TIA, UTI, volume depletion. Data reviewed: vital signs, nurses notes, EMS record, lab test result(s), EKG, radiologic studies, CT scan, plain films. Data interpreted: child monitor: rate is 84 beats/min, rhythm is regular, Pulse oximetry: on room air is 99 %. Test interpretation: by ED physician or midlevel provider: ECG, plain radiologic studies. Counseling: I had a detailed discussion with the patient and/or guardian regarding: the historical points, exam findings, and any diagnostic results supporting the discharge/admit diagnosis, lab results, radiology results, the need for outpatient follow up, for definitive care, a family practitioner, a neurologist. 08/23 04:05 Order name: Basic Metabolic Panel; Complete Time: 05:00 [facility] 08/23 04:05 Order name: CBC with Diff; Complete Time: 06:15 [facility] 08/23 04:05 Order name: LFT's; Complete Time: 05:00 [facility] 08/23 04:05 Order name: Magnesium; Complete Time: 05:00 [facility] 08/23 04:05 Order name: NT PRO-BNP; Complete Time: 05:00 [facility] 08/23 04:05 Order name: PT-INR; Complete Time: 04:47 [facility] 08/23 04:05 Order name: Troponin HS; Complete Time: 05:00 nicky 08/23 04:05 Order name: Acetaminophen; Complete Time: 05:00 [facility] 08/23 04:05 Order name: ETOH Level; Complete Time: 05:00 [facility] 08/23 04:05 Order name: Ptt, Activated; Complete Time: 04:47 [facility] 08/23 04:05 Order name: Salicylate; Complete Time: 05:00 [facility] 08/23 04:05 Order name: Urine Drug Screen; Complete Time: 06:15 [facility] 08/23 04:05 Order name: SARS RAPID; Complete Time: 05:00 [facility] 08/23 05:26 Order name: CBC Smear Scan; Complete Time: 06:15 EDMS 08/23 04:05 Order name: XRAY Chest (1 view) 08/23 04:05 Order name: EKG; Complete Time: 04:07 [facility] 08/23 04:05 Order name: Cardiac monitoring; Complete Time: 04:35 [facility] 08/23 04:05 Order name: EKG - Nurse/Tech; Complete Time: 04:30 [facility] 08/23 04:05 Order name: IV Saline Lock; Complete Time: 04:35 [facility] 08/23 04:05 Order name: Labs collected and sent; Complete Time: 04:35 [facility] 08/23 04:05 Order name: O2 Per Protocol; Complete Time: 04:35 [facility] 08/23 04:05 Order name: O2 Sat Monitoring; Complete Time: 04:35 [facility] 08/23 04:05 Order name: CT Head C Spine [facility] 08/23 05:32 Order name: Urine Dipstick-Ancillary; Complete Time: 06:15 [facility]DC 08/23 06:16 Order name: Urine Microscopic Only 08/23 04:05 Order name: Urine Dipstick-Ancillary (obtain specimen); Complete Time: 05:32 [facility] 08/23 04:05 Order name: Seizure Precautions; Complete Time: 04:34 [facility] 08/23 04:05 Order name: Urine Test (obtain specimen); Complete Time: 05:32 [facility] EC:51 Rate is 81 beats/min. Rhythm is regular. QRS Weldon is Normal. SD interval is normal. QRS nicky interval is normal. QT interval is normal. No Q waves. T waves are Normal. No ST changes noted. Clinical impression: NSR w/ Non-specific ST/T Changes and No evidence of ischemia. Interpreted by me. Reviewed by me. Administered Medications: 04:35 Drug: NS 0.9% 1000 ml Route: IV; Rate: 1 bolus; Site: right antecubital; jb4 05:14 Not Given (Other Intervention Used): foLIC Acid 1 mg IVPB once jb4 05:14 Drug: foLIC Acid 1 mg Route: PO; jb4 06:34 Drug: Rocephin (cefTRIAXone) 1 grams Route: IV; Rate: per protocol; Site: right aa9 antecubital; Disposition Summary: 08/23/22 06:14 Discharge Ordered Location: Home nicky Problem: new nicky Symptoms: have improved nicky Condition: Stable nicky Diagnosis - Other seizures nicky - Weakness nicky - Anemia, unspecified nicky - Altered mental status, unspecified - RESOLVED nicky - Iron deficiency anemia, unspecified nicky - UTI/ Urinary tract infection, site not specified nicky - Abuse of other non-psychoactive substances nicky Followup: nicky - With: Private Physician - When: 2 - 3 days - Reason: Recheck today's complaints, Continuance of care, Re-evaluation by your physician Followup: nicky - With: - When: 2 - 3 days - Reason: Recheck today's complaints, Re-evaluation by your physician Discharge Instructions: - Discharge Summary Sheet nicky - Anemia nicky - Confusion nicky - Seizure, Adult nicky - Iron-Rich Diet nicky - Substance Use Disorder nicky - Weakness nicky - Seizure, Adult, Kftv-yj-Gjwv nicky - Weakness, Vjcx-oo-Qqmb nicky - Iron Deficiency Anemia, Pediatric nicky - Iron Deficiency Anemia, Adult, Udgx-uz-Itxr nicky - Urinary Tract Infection, Adult nicky - Urinary Tract Infection, Adult, Qyoc-mu-Heoz nicky Forms: - Medication Reconciliation Form nicky - Thank You Letter nicky - Antibiotic Education nicky - Prescription Opioid Use nicky - Work release form aa9 Prescriptions: - Cipro 250 mg Oral Tablet - take 1 tablet by ORAL route every 12 hours; 14 tablet; Refills: 0, Product nicky Selection Permitted - Folic Acid 1 mg Oral Tablet - take 1 tablet by ORAL route once daily; 30 tablet; Refills: 0, Product nicky Selection Permitted - Ferrous Sulfate 325 mg (65 mg Iron) Oral Tablet - take 1 tablet by ORAL route every 8 hours; 90 tablet; Refills: 0, Product nicky Selection Permitted Signatures: Dispatcher [employer] Kamari Hart MD MD cha Ballard, Brenda, RN RN Berry Soriano RN RN jb4 Jyoti Ji RN RN aa9 Corrections: (The following items were deleted from the chart) 04:34 04:05 Suicide Screening ([place]) ordered. nicky jb4
--- NOTE | 2022-08-23 06:15 | ER ---
Nurse's Notes [facility] Name: Savanah Cunha Age: 47 yrs Sex: Female : 1975 Arrival Date: 08/23/2022 Time: 04:02 Bed 4 Private MD: Diagnosis: Other seizures;Weakness;Anemia, unspecified;Altered mental status, unspecified-RESOLVED;Iron deficiency anemia, unspecified;UTI/ Urinary tract infection, site not specified;Abuse of other non-psychoactive substances Presentation: 08/23 04:03 Chief complaint: EMS states: they were toned out for report of pt possibly having a bb seizure symptoms were described as pt choking and shaking in bed lasting approx 20 seconds pt may have had a fall earlier in the day pt is alert on arrival but does not remember what happened. Coronavirus screen: At this time, the client does not indicate any symptoms associated with coronavirus-19. Ebola Screen: No symptoms or risks identified at this time. Initial Sepsis Screen: Does the patient meet any 2 criteria? No. Patient's initial sepsis screen is negative. Does the patient have a suspected source of infection? No. Patient's initial sepsis screen is negative. Risk Assessment: Do you want to hurt yourself or someone else? Patient reports no desire to harm self or others. Onset of symptoms was August 23, 2022. 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 - Social history:: Smoking status: Reported history of juuling and/or vaping. Patient uses alcohol, occasionally. Patient/guardian denies using street drugs. Screenin:44 Abuse screen: Denies threats or abuse. Denies injuries from another. Nutritional aa9 screening: No deficits noted. Tuberculosis screening: No symptoms or risk factors identified. Fall Risk None identified. Assessment: 04:00 Pain: Complains of pain in back Aggravated by increased activity. Neuro: Level of aa9 Consciousness is awake, alert, obeys commands, Oriented to person, place, time, situation. 04:00 General: Appears comfortable, well groomed, Behavior is cooperative, appropriate for aa9 age, anxious. Cardiovascular: Patient's skin is warm and dry. Respiratory: Airway is patent Respiratory effort is even, unlabored. GI: No signs and/or symptoms were reported involving the gastrointestinal system. : No signs and/or symptoms were reported regarding the genitourinary system. EENT: No signs and/or symptoms were reported regarding the EENT system. Derm: Skin is healthy with good turgor. Musculoskeletal: Capillary refill < 3 seconds. 06:39 General: pt aware of discharge and medication instructions, denies concerns, family aa9 member understands discharge instructions. lab and imaging results printed for patient. ambulated out of ER. Vital Signs: 04:03 BP 128 / 84; Pulse 84; Resp 16 S; Temp 98.5(O); Pulse Ox 99% ; Weight 81.65 kg (R); bb Height 5 ft. 3 in. (160.02 cm) (R); Pain 0/10; 05:09 BP 112 / 71; Pulse 76; Resp 17 S; Pulse Ox 96% on R/A; aa9 04:03 Body Mass Index 31.89 (81.65 kg, 160.02 cm) ED Course: 04:02 Patient arrived in ED. bb 04:03 Kamari Mccloud MD is Attending Physician. [facility] 04:06 Triage completed. bb 04:06 Arm band placed on Patient placed in an exam room, on a stretcher, on pulse oximetry. bb 04:25 Maintain EMS IV. Dressing intact. Good blood return noted. Site clean \T\ dry. Gauge \T\ sherri 4 site: 20g RAC. 04:35 Salicylate Sent. jb4 04:35 Ptt, Activated Sent. jb4 04:35 ETOH Level Sent. jb4 04:35 Acetaminophen Sent. jb4 04:35 Basic Metabolic Panel Sent. jb4 04:35 CBC with Diff Sent. jb4 04:35 LFT's Sent. jb4 04:35 Magnesium Sent. jb4 04:35 NT PRO-BNP Sent. jb4 04:35 PT-INR Sent. jb4 05:34 Patient has correct armband on for positive identification. Bed in low position. Call aa9 light in reach. Side rails up X2. Adult w/ patient. Seizure precautions initiated. Door closed. Warm blanket given. Assisted to bedside commode. Repositioned patient. 05:36 Jyoti Ji, RN is Primary Nurse. aa9 06:14 Wood Martinez MD is Referral Physician. nicky 06:27 Urine Microscopic Only Sent. aa9 06:38 No provider procedures requiring assistance completed. IV discontinued, intact, aa9 bleeding controlled, No redness/swelling at site. Pressure dressing applied. 07:33 CT Head C Spine In Process Unspecified. EDMS 07:34 XRAY Chest (1 view) In Process Unspecified. EDMS Administered Medications: 04:35 Drug: NS 0.9% 1000 ml Route: IV; Rate: 1 bolus; Site: right antecubital; jb4 05:14 Not Given (Other Intervention Used): foLIC Acid 1 mg IVPB once jb4 05:14 Drug: foLIC Acid 1 mg Route: PO; jb4 06:34 Drug: Rocephin (cefTRIAXone) 1 grams Route: IV; Rate: per protocol; Site: right aa9 antecubital; Medication: 06:39 VIS not applicable for this client. aa9 Outcome: 06:14 Discharge ordered by . nicky 06:39 Discharged to home ambulatory, with family. aa9 06:39 Condition: stable 06:39 Condition: stable 06:39 Discharge instructions given to patient, family, Instructed on discharge instructions, follow up and referral plans. medication usage, Demonstrated understanding of instructions, follow-up care, medications, Prescriptions given X 3. 06:41 Patient left the ED. aa9 Signatures: Dispatcher [employer] EDKamari Mackenzie MD MD cha Ballard, Brenda, PAVAN RN Berry Soriano RN RN jb4 Jyoti Ji, PAVAN RN aa9
[2022-08-23] MEDS ORDERED: CEFTRIAXONE 1000 MG/VIAL ONE (06:28)
[2022-08-23 06:45] LABS: Urine Bacteria <20 /HPF (<20); Urine Mucus Slight /HPF (None Seen)
[2022-08-23 06:47] VITALS: TEMP 98.5
[2022-08-23 06:48] VITALS: BP 112/71; O2SAT 96
--- NOTE | 2022-08-24 15:05 | RAD REPORT ---
EXAM DESCRIPTION: CT - Head C Spine Mpr Wo Con - 08/23/2022 4:54 am CLINICAL HISTORY: The patient is 47 years old and is Female; FALL TECHNIQUE: Axial computed tomography images of the head/brain and cervical spine without intravenous contrast. Sagittal and coronal reformatted images were created and reviewed. This CT exam was pe rformed using one or more of the following dose reduction techniques: automated exposure control, a djustment of the mA and/or kV according to patient size, and/or use of iterative reconstruction techn ique. COMPARISON: No relevant prior studies available. FINDINGS: Brain: Unremarkable. No hemorrhage. No significant white matter disease. No edema. Ventricles: Unremarkable. No ventriculomegaly. Skull: No acute fracture. Sinuses: Unremarkable as visualized. No acute sinusitis. Mastoid air cells: Unremarkable as visualized. No mastoid effusion. Vertebrae: Reversal of the normal cervical lordosis. Discs/spinal canal/neural foramina: Disc space narrowing with degenerative endplate changes from C5-6 through C6-7. Soft tissues: Unremarkable. IMPRESSION: No acute intracranial abnormality. No acute findings in the cervical spine. Electronically signed by: Jesus Winkler MD 08/23/2022 6:02 AM CDT Due to temporary technical issues with the PACS/Fluency reporting system, reports are being signed by the in house radiologists without review as a courtesy to insure prompt reporting. The interpreting radiologist is fully responsible for the content of the report.
--- NOTE | 2022-08-24 15:45 | RAD REPORT ---
EXAM DESCRIPTION: RAD - Chest Single View - 08/23/2022 5:09 am CLINICAL HISTORY: The patient is 47 years old and is Female; COUGH TECHNIQUE: Frontal view of the chest. COMPARISON: No relevant prior studies available. FINDINGS: Lungs: Hazy opacification of the mid to lower lungs bilaterally which is likely due to o verlying soft tissue. No consolidation. Pleural space: Unremarkable. No pneumothorax. Heart: Unremarkable. Mediastinum: Unremarkable. Bones/joints: Unremarkable. IMPRESSION: No acute findings in the chest. Electronically signed by: Jesus Winkler MD 08/23/2022 5:23 AM CDT Due to temporary technical issues with the PACS/Fluency reporting system, reports are being signed by the in house radiologists without review as a courtesy to insure prompt reporting. The interpreting radiologist is fully responsible for the content of the report.
--- NOTE | 2022-08-24 18:40 | EKG ---
Test Date: 2022-08-23 Test Time: 04:24:07 Supervisor Filter Assembly: WILL MEASUREMENT RESULTS: Intervals: Rate: 81 OH: 148 QRSD: 94 QT: 370 QTc: 429 Cabins: P: 70 OH: 148 QRS: 45 T: 32 INTERPRETIVE STATEMENTS: Sinus rhythm with occasional premature ventricular complexes Possible Left atrial enlargement T wave abnormality, consider anterior ischemia Abnormal ECG Compared to ECG 08/23/2022 04:22:58 No significant changes Electronically Signed On 08-24-22 18:37:51 CDT by Hernandez Pineda
--- NOTE | 2022-08-24 18:41 | EKG ---
Test Date: 2022-08-23 Test Time: 04:22:58 Squaring Machine Operator: WILL MEASUREMENT RESULTS: Intervals: Rate: 83 NE: 146 QRSD: 96 QT: 366 QTc: 430 [place]: P: 65 NE: 146 QRS: 52 T: 29 INTERPRETIVE STATEMENTS: Sinus rhythm with occasional premature ventricular complexes Possible Left atrial enlargement RSR' or QR pattern in V1 suggests right ventricular conduction delay T wave abnormality, consider anterior ischemia Abnormal ECG Compared to ECG 08/06/2019 00:03:35 Ventricular premature complex(es) now present RSR' in V1 or V2 now present T-wave abnormality still present Possible ischemia still present Electronically Signed On 08-24-22 18:37:55 CDT by Hernandez Pineda
== END 2022-08-23 06:41 | disposition home or self-care (01) ==
LOC: ER 03:53
DX: G40.89 Other seizures (principal); R53.1 Weakness; D50.9 Iron deficiency anemia, unspecified; N39.0 Urinary tract infection, site not specified; F55.8 Abuse of other non-psychoactive substances; R41.82 Altered mental status, unspecified; Z88.8 Allergy status to other drugs, medicaments and biological substances
CPT/HCPCS: 36415; 70450; 71045; 72125; 80048; 80076; 80307; 80320; 80329; 81003; 81015; 83735; 83880; 84484; 85025; 85610; 85730; 87086; 87088; 87811; 93005; 96374; 99284; J7030